=== PATIENT | male | born 1980 | race African-American/Black ===

== ENCOUNTER 2024-07-28 11:23 | Emergency (ER) | payer OTHER ==
[~2024-07-28] VITALS: Ht 177.8 cm; Wt 100.0 kg
[2024-07-28 11:27] VITALS: O2SAT 99
[2024-07-28] MEDS: SODIUM CHLORIDE 0.9% (SEPSIS BOLUS) IV ONE (11:38)
[2024-07-28] MEDS: PIPERACILLIN/TAZO 3.375G/50ML 50 ML IV ONE (11:41)
[2024-07-28 11:45] LABS: BASOPHILS % 1.1 % (0.0-2.0); EOSINOPHILS % 3.4 % (0.0-5.0); LYMPHOCYTES % 25.5 % (20.0-50.0); MEAN CORPUSCULAR HGB CONC 32.4 g/dL (31.0-37.0); MEAN CORPUSCULAR VOLUME 86.3 fL (80.0-94.0); MEAN PLATELET VOLUME 9.4 fl (7.4-10.4); MONOCYTES % 13.2 % (2.0-8.0); NEUTROPHILS % 56.8 % (40.0-76.0); PLATELET 244 x1000/uL (130-400); RED BLOOD CELL COUNT 3.94 mill/uL (4.7-6.1); RED CELL DISTRIBUTION WIDTH 15.2 % (11.6-14.6); WHITE BLOOD COUNT 6.8 x1000/uL (4.5-11.0)
[2024-07-28 11:52] LABS: CARBON DIOXIDE 31 mEq/L (21-32); CHLORIDE 97 mEq/L (98-107); SODIUM 137 mEq/L (136-145)
[2024-07-28 11:53] LABS: CALCIUM 9.5 mg/dL (8.7-10.4)
[2024-07-28] MEDS: VANCOMYCIN 1G PREMIX 200 ML IV ONE (11:57)
[2024-07-28 11:58] LABS: GLUCOSE 109 mg/dL (70-105); UREA NITROGEN BLOOD 41 mg/dL (9-23)
[2024-07-28 11:59] LABS: ALBUMIN 3.8 g/dL (3.2-4.8)
[2024-07-28 12:00] LABS: ALANINE AMINOTRANSFERASE < 7 IU/L (10-49); ASPARTATE AMINOTRANSFERASE 18 IU/L (<34); BILIRUBIN DIRECT 0.2 mg/dL (<=3.0); BILIRUBIN TOTAL 0.3 mg/dL (0.1-1.0); PROTEIN TOTAL 6.6 g/dL (6.0-8.3)
[2024-07-28 12:01] LABS: CREATININE 10.4 mg/dL (0.6-1.3)
[2024-07-28 12:02] LABS: TROPONIN I HIGH SENSITIVITY 92 ng/L (3.0-53)
[2024-07-28 12:06] LABS: PROTHROMBIN TIME 11.2 sec (9.6-11.0)
[2024-07-28] MEDS: ACETAMINOPHEN 325MG TABLET PO ONE (13:33)
[2024-07-28 14:24] VITALS: BP 114/66; PULSE 60; RESP 12; TEMP 36.3; O2SAT 97
[2024-07-28 15:11] LABS: TROPONIN I HIGH SENSITIVITY 88 ng/L (3.0-53)
== END 2024-07-28 15:22 | disposition short-term general hospital (02) ==
LOC: ER 11:23 → CANBEDREQ 13:38 → ER 15:22
DX: I95.9 Hypotension, unspecified (principal); E11.649 Type 2 diabetes mellitus with hypoglycemia without coma; R51.9 Headache, unspecified; I11.0 Hypertensive heart disease with heart failure; I50.9 Heart failure, unspecified; Z86.73 Personal history of transient ischemic attack (TIA), and cerebral infarction without residual deficits; Z99.2 Dependence on renal dialysis; Z79.899 Other long term (current) drug therapy; Z98.890 Other specified postprocedural states
CPT/HCPCS: 80076; 80048; 82962; 83605; 85025; 85610; 87040; 84484; 36415; 84145; 71045; 70450; 93005; 96367; 96365; 99291; J2543; J3370; J7030; Z7610